=== PATIENT | female | born 2000 | race Caucasian/White ===

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

== ENCOUNTER 2020-12-08 23:09 | Emergency (ER) | payer OTHER ==
[~2020-12-08] VITALS: Ht 172.7 cm; Wt 58.7 kg
[2020-12-08 23:09] VITALS: BP 162/81
== END 2020-12-09 03:02 | disposition left against medical advice (07) ==
LOC: M ED 23:09
DX: Z53.21 Procedure and treatment not carried out due to patient leaving prior to being seen by health care provider (principal)

== ENCOUNTER 2020-12-14 01:52 | Emergency (ER) | payer OTHER ==
[~2020-12-14] VITALS: Ht 172.7 cm; Wt 58.7 kg
[2020-12-14] MEDS ORDERED: NS 1,000 ML IV ONE (07:35)
[2020-12-14] MEDS ORDERED: KETOROLAC 30 MG/ML 1ML VIAL IV ONE (07:35)
[2020-12-14 08:44] LABS: BASO % 0.7 % (0.0-1.0); EOS % 0.3 % (0.0-3.0); HEMATOCRIT 42.7 % (36.0-47.0); LYMPH % 32.6 % (24.0-44.0); MEAN CORPUSCULAR HEMOGLOBIN 31.3 pg (27.0-33.0); MEAN CORPUSCULAR HGB CONC 35.1 g/dl (32.0-36.5); MEAN CORPUSCULAR VOLUME 89.1 fl (80.0-96.0); MONO # 0.5 10^3/uL (0.0-0.8); MONO % 8.6 % (2.0-8.0); NEUTROPHILS # 3.5 10^3/uL (1.5-8.5); NEUTROPHILS % 57.1 % (36.0-66.0); PLATELET COUNT, AUTOMATED 257 10^3/uL (150-450); RED BLOOD COUNT 4.79 10^6/uL (4.00-5.40); WHITE BLOOD COUNT 6.1 10^3/uL (4.0-10.0)
[2020-12-14 08:55] LABS: RSV AMPLIFICATION NEGATIVE (NEGATIVE)
[2020-12-14] MEDS ORDERED: ONDANSETRON 4MG/2ML VIAL IV ONE (09:10)
[2020-12-14] MEDS ORDERED: ONDANSETRON 4MG/2ML VIAL As Ordered ONE (09:11)
[2020-12-14 09:13] LABS: CK-MB VALUE MASS 5.4 NG/ML (<3.6); CPK CREATINE PHOSPHOKINASE 339 U/L (26-192); MB/CK RELATIVE INDEX 1.59 (< OR =4); TROPONIN I < 0.02 NG/ML (< 0.10)
[2020-12-14 09:20] LABS: ERYTHROCYTE SEDIMENTATION RATE 2 mm/hr (0-20)
--- NOTE | 2020-12-14 09:53 | REP ---
INDICATION: SOB, CP. COMPARISON: None. TECHNIQUE: Portable FINDINGS: The technique utilized in obtaining the radiograph has magnified the cardiac silhouette and accentuated the interstitial markings. The superior mediastinal structures are midline. The cardiac silhouette is unremarkable in size, shape, and position. The diaphragmatic surfaces of the lungs are regular, and the costophrenic angles are clear. The pulmonary silvestre are clear. The imaged osseous structures are intact. IMPRESSION: There is no acute cardiopulmonary disease. <Electronically signed by Dinesh Doshi > 12/14/20 [id number]
[2020-12-14] MEDS ORDERED: CLOT1CRE56 TOP (10:46)
[2020-12-14] MEDS ORDERED: DOXY-443 PO (10:46)
[2020-12-14 11:00] VITALS: BP 122/56
[2020-12-15] MEDS ORDERED: LORA1TAB4 (13:34)
[2020-12-15 17:09] LABS: Lyme Disease IgG/IgM Antibodie <0.91 ISR (0.00-0.90); Lyme Disease IgM Ab Quantitati <0.80 index (0.00-0.79)
== END 2020-12-14 11:05 | disposition home or self-care (01) ==
LOC: M ED 01:52
DX: R21 Rash and other nonspecific skin eruption (principal); R00.2 Palpitations; R74.8 Abnormal levels of other serum enzymes; R06.02 Shortness of breath; R11.0 Nausea; F17.200 Nicotine dependence, unspecified, uncomplicated; Z79.899 Other long term (current) drug therapy
CPT/HCPCS: 71045; 80047; 82550; 82553; 84702; 85025; 85379; 85652; 86617; 87631; 96361; 96374; 96375; 99284; J1885; J2405

== ENCOUNTER 2020-12-15 13:10 | Emergency (ER) | payer OTHER, SELFPAY ==
[~2020-12-15] VITALS: Ht 172.7 cm; Wt 57.3 kg
[~2020-12-15 13:10] MED LIST changes: +CLOT1CRE56 TOP; +DOXY-443 PO
[2020-12-15] MEDS ORDERED: LORA1TAB4 (13:34)
--- OUTSIDE RECORDS SUMMARY | 2020-12-15 19:38 | CCD | Continuity of Care Document ---
Author Author Nereida ROSENBERG Organization Unknown Address [address] [place] [id number] Phone [phone] Problems Description No Information Available Social History Type Date Description Comments Sex Unknown Allergies, Adverse Reactions, Alerts Description No Information Available Medications Description No Information Available Immunizations Description No Information Available Vital Signs Description No Information Available Results Description No Information Available Procedures Description No Information Available Medical Devices Description No Information Available Encounters Description No Information Available Assessments Date Code Description Provider 11/06/2020 Z20.828 Contact with and (koo spected) exposure to other viral communicable diseases LILY Browning Plan of Treatment No Information Available Functional Status Description No Information Available Mental Status Description No Information Available Referrals Description No Information Available
--- OUTSIDE RECORDS SUMMARY | 2020-12-15 19:38 | CCD | Continuity of Care Document ---
Author Author Nereida ROSENBERG Organization Unknown Address [address] [place] [id number] Phone [phone] Problems Description No Information Available Social History [...]
--- OUTSIDE RECORDS SUMMARY | 2020-12-15 19:39 | CCD ---
Author Author [facility] Organization [facility] Address Unknown Phone Unavailable Care Team Providers Care Washer Hand Name Role Phone NO, PCP Unavailable Unavailable TURRIN, ANTWAN Unavailable Unavailable TURRIN, ANTWAN Unavailable Unavailable TURRIN, ANTWAN Unavailable Unavailable TURRIN, ANTWAN Unavailable Unavailable Re-disclosure Warning The records that you are about to access may contain information from federally-assisted alcohol or drug abuse programs. If such information is present, then the following federally mandated warning applies: This information has been disclosed to you from records protected by federal confidentiality rules (42 CFR part 2). The federal rules prohibit you from making any further disclosure of this information unless further disclosure is expressly permitted by the written consent of the person to whom it pertains or as otherwise permitted by 42 CFR part 2. A general authorization for the release of medical or other information is NOT sufficient for this purpose. The Federal rules restrict any use of the information to criminally investigate or prosecute any alcohol or drug abuse patient.The records that you are about to access may contain highly sensitive health information, the redisclosure of which is protected by Article 27-F of the [facility] Public Health law. If you continue you may have access to information: Regarding HIV / AIDS; Provided by facilities licensed or operated by the [facility] Office of Mental Health; or Provided by the [facility] Office for People With Developmental Disabilities. If such information is present, then the following [facility] mandated warning applies: This information has been disclosed to you from confidential records which are protected by state law. State law prohibits you from making any further disclosure of this information without the specific written consent of the person to whom it pertains, or as otherwise permitted by law. Any unauthorized further disclosure in violation of state law may result in a fine or prison sentence or both. A general authorization for the release of medical or other information is NOT sufficient authorization for further disc losure. Family History Family Member Name Family Member Gender Family Member Status Date o f Status Description Data Source(s) Unknown Unknown Problem [facility] ([facility]) Unknown Unknown Problem [facility] ([facility]) Unknown Unknown Problem [facility] ([facility]) Unknown Unknown Problem [facility] ([facility]) Encounters Encounter Providers Location Date Indications Data Source(s ) Emergency Attender: ANTWAN Cruzant: PCP NO 12/10/2020 09:45:00 AM EDT - 12/10/2020 12:12:00 PM EDT [facility] Patient discharged. Medications Medication Brand Name Start Date Product Form Dose Route Admi nistrative Instructions Pharmacy Instructions Status Indications Reaction Description Data Source(s) Cephalexin 500 MG Oral Capsule CEPHALEXIN 12/08/2020 12:00:00 AM EDT capsule 21 TAKE ONE CAPSULE BY MOUTH THREE TIMES A DAY FOR 7 DAYS TAKE ONE CAPSULE BY MOUTH THREE TIMES A DAY FOR 7 DAYS SOLD: 12/08/2020 [facility] Insurance Providers Payer name Policy type / Coverage type Policy ID Covered constitution party ID Covered constitution party's relationship to diaz Policy Diaz Plan Information D Managed Care Sudheer P [id number] S [id number] MEDICAID [id number] SP [id number] Medicaid [facility] Part B [id number] Self [id number] [place] Medicaid [id number] Self [id number] SUDHEER [id number] SP [id number] [place] Medig[place] Part B [id number] Self [place] Care [place] Medicaid [id number] Self D Managed Care [place] P [id number] S [id number] Sudheer Care Commercial [id number] Self [place] CARE [place] O [id number] S [id number] SUDHEER [id number] SP [id number] MEDICAID [id number] SP [id number] Problems, Conditions, and Diagnoses Code Display Name Description Problem Type Effective Dates Data Source(s) G06068 Nicotine dependence, cigarettes, uncompl icated Nicotine dependence, cigarettes, uncomplicated Diagnosis 12/10/2020 09:45:00 AM EDT [facility] [id number] Cellulitis of left lower limb Cellulitis of left lower limb Diagnosis 12/10/2020 09:45:[address] [facility] R21 Rash and other nonspecific skin eruption Rash and other nonspecific skin eruption Diagnosis 12/10/2020 09:45:[address] [facility] Surgeries/Procedures No Information Results ID Date Data Source [id number] 12/10/2020 09:45:[address] [facility] [address] [facility] Emergency Department [address] [place] [address] Phone #: ext- [phone] 12/10/2020 09:43 Patient: JON POLK Sex: F : 2000 Age: 20yWEIGHT:57.1 kg (S) HEIGHT:68 inches (S) BMI:19.1ALLERGIES: NoneCHIEF COMPLAINT: skin rash, lesion, tender areaDIAGNOSIS: Cellulitis of skinLAB ORDERSOrder Description Priority Entered Acknowledged InitialedUrinalysis (Clean STAT 11:08 12/10/2020 11:12 Shashi Vicente RN P.A.-C;HCG Urine Qual STAT 11:12/10/2020 11:12 Adolfo Vicente RN P.A.-C;DIAGNOSTIC STUDY ORDERSOrder Description Priority Entered Acknowledged InitialedMEDICATION/IV/DRIP/FLUID ORDERSOrder Description Priority Entered Acknowledged InitialedGENERAL ORDERSOrder Description Priority Entered Acknowledged Initialed[Electronically signed by Kanchan Ortiz RN (12:14 12/10/2020)][Electronically signed by Manjit Carter P.A.-C (20:57 12/10/2020)][Electronically locked by Kanchan Ortiz RN (12:12/10/2020)] Name Value Range Interpretation Code Description Data Kezia rce(s) Supporting Document(s) ID Date Data Source [id number] 12/10/2020 09:45:[address] [facility] [address] [facility] Emergency Department [address] [place] [address] Phone #: [phone]- [phone] 12/10/2020 09:43 Patient: JON POLK Sex: F : 2000 Age: 20yWeight: 57.1 kgHeight/Length: 68 in.BMI: 19.1ALLERGIES: NoneThe patient's Home Medications are listed below:STOP TAKING THE FOLLOWING MEDICATIONS: Keflex Oral, only took 1 dose and did not take anymoreThe source(s) of the original Home Medication information:Not obtained.The following Medications were given to the patient in the Emergency Department:None.The following Medications were prescribed to the patient:Ativan 1 mg tablet Take 1 tablet twice a day for 5 days -- Dispense 10 tablet. Refills: 0. Substitutionpermitted. Note to Pharmacy - USE Rx DISCOUNT CARD: $74.25, BIN:[id number], PCN:NAOMI,Group:[id number], ID:[id number].Pharmacy - [facility] - [id number] ; [place] [address]. FaxNumber: [phone].Bactrim DS 800 mg-160 mg tablet Take 1 tablet twice a day for 10 days -- Dispense 20 tablet. Refills:0. Substitution permitted. Note to Pharmacy - USE Rx DISCOUNT CARD: $44.43, BIN:[id number],PCN:NAOMI, Group:[id number], ID:[id number].Pharmacy - [facility] - [id number] ; [place] [address]. Phone: FaxNumber: . -- Manjit Carter P.A.-C Name Value Range Interpretation Code Description Data [facility] Supporting Document(s) ID Date Data Source [id number] 12/10/2020 09:45:[address] [facility] [address] [facility] Emergency Department [address] [place] [address] Phone #: ext- [phone] 12/10/2020 09:43 Patient: JON POLK Sex: F : 2000 Age: 20yWeight: 57.1 kgHeight/Length: 68 inBMI: 19.1ALLERGIES: NoneDate/Time Medication Administered Medication Ordered Name Value Range Interpretation Code Description Data [facility] Supporting Document(s) ID Date Data Source [id number] 12/10/2020 09:45:[address] [facility] [address] [facility] Emergency Department [address] [place] [address] Phone #: ext- [phone] 12/10/2020 09:43 Patient: JON POLK Sex: F : 2000 Age: 20yCellulitis of the left lower leg.INSTRUCTIONSDo not work today, tomorrow.No dietary restrictions.(Recommend to utilize OTC Motrin and Tylenol to control inflammation and pain management.Recommend to follow the instructions on the bottle and not to exceed.).Warnings: Further evaluation is necessary.SEDATIVE MEDICATION: You were given sedative medication during your visit. Do not drive or operatedangerous machinery.CONTROLLED SUBSTANCE WARNINGS.GENERAL WARNINGS: Return or contact your physician immediately if your condition worsens orchanges unexpectedly, if not improving as expected, or if other problems arise.Your Current Medications: Your current home medications have been reviewed.STOP TAKING THE FOLLOWING MEDICATIONS:Keflex Oral : only took 1 dose and did not take anymore.Prescription monitor program consulted by me due to This report was requested by: Manjit CarterReference #: [id number]. Prescription does not exceed state maximum supply of medicationsPrescription Medications:Ativan 1 mg tablet Take 1 tablet twice a day for 5 days -- Dispense 10 tablet. Refills: 0. Substitutionpermitted. Note to Pharmacy - USE Rx DISCOUNT CARD: $74.25, BIN:[id number], PCN:NAOMI,Group:[id number], ID:[id number].Pharmacy - [facility] - [id number] ; [place] [address]. FaxNumber: [phone].Bactrim DS 800 mg-160 mg tablet Take 1 tablet twice a day for 10 days -- Dispense 20 tablet. Refills:0. Substitution permitted. Note to Pharmacy - USE Rx DISCOUNT CARD: $44.43, BIN:[id number],PCN:NAOMI Group:[id number], ID:[id number].Pharmacy - [facility] - [id number] ; [place] [address]. Phone: FaxNumber: .Follow-up: [address] [facility] Emergency Department [address] [place] [address] Phone #: ext- [phone] 12/10/2020 09:43 Patient: JON POLK Sex: F : 2000 Age: 20yReturn to the emergency department as needed. Follow up with your healthcare provider if not better.Understanding of the discharge instructions verbalized by patient.Follow-up with: [facility], , , [address] [place] [address], [address] Follow up. Reason for referral: evaluation, treatment and To establish care. ADDITIONAL INFORMATIONCellulitisCellulitis is an infection of the deep layers of skin. A break in the skin, such as a cut or scratch, can letbacteria under the skin. If the bacteria get to deep layers of the skin, it can be serious. If not treated,cellulitis can get into the bloodstream and lymph nodes. The infection can then spread throughout thebody. This causes serious illness.Cellulitis causes the affected skin to become red, swollen, warm, and sore. The reddened areas havea visible border. An open sore may leak fluid (pus). You may have a fever, chills, and pain.Cellulitis is treated with antibiotics taken for 7 to 10 days. An open sore may be cleaned and coveredwith cool wet gauze. Symptoms should get better 1 to 2 days after treatment is started. Make sure totake all the antibiotics for the full number of days until they are gone. Keep taking the medicine even ifyour symptoms go away.Home careFollow these tips: Limit the use of the part of your body with cellulitis. If the infection is on your leg, keep your leg raised while sitting. This helps reduce swelling. Take all of the antibiotic medicine exactly as directed until it is gone. Don't miss any doses, especially during the first 7 days. Don't stop taking the medicine when your symptoms get better. Keep the affected area clean and dry. Wash your hands with soap and clean, running water before and after touching your skin. Anyone else who touches your skin should also wash his or her hands. Don't share towels.Follow-up careFollow up with your healthcare provider, or as advised. If your infection doesn't go away on the first [address] [facility] Emergency Department [address] [place] [address] Phone #: ext- [phone] 12/10/2020 09:43 Patient: JON POLK Sex: F : 2000 Age: 20yantibiotic, your healthcare provider will prescribe a different one.When to seek medical adviceCall your healthcare provider right away if any of these occur: Red areas that spread Swelling or pain that gets worse Fluid leaking from the skin (pus) Fever higher of 100.4 F (38.0 C) or higher after 2 days on antibiotics [id number] [employer]. [address] [place] [address], [place] [address]. All rights reserved. This information is not intended as asubstitute for professional medical care. Always follow your healthcare professional's instructions. You have been given the following additional information: Cellulitis Do not work today, tomorrow.(Electronically signed by Manjit Carter P.A.-C 12/10/2020 20:57) Name Value Range Interpretation Code Description Data Kezia rce(s) Supporting Document(s) ID Date Data Source [id number] 12/10/2020 09:45:[address] [facility] 1 Clinical Report - Nurses [facility] Emergency Department [address] [place] [address] Phone #: ext- [phone] 12/10/2020 09:43 Patient: JON POLK Sex: F : 2000 Age: 20yTRIAGEArrived by private vehicle. Historian: patient. Accompanied by family. ( had a rash on leg [facility] keflex 1 hour later she felt that her heart was racing she does haveanxiety then she states that her legs were twitching, [place] [facility] [place] [facility] [place] [facility] started to slow down and now shenoticed she had an enlarged lymph node enlargement, legs feel weak, she started vomit after takingantibiotic and now has loose stools, only took the antibiotic once, she states she stuck a needle in themiddle of her sore now she is concerned that it is in her blood stream she also has flight of ideas).Acuity: LEVEL 3.Chief Complaint: (anxiety, loose st ool).Alert. No acute distress.This started yesterday.Treatment SKEIN YARN DRIER:None.SEPSIS SCREEN: SIRS SCREEN NEGATIVE. SEPSIS SCREEN NEGATIVE. No suspected or confirmedsigns of infection present. --09:58 12/10/20 Addie Jaimes R.N.09:49 12/10/20. BP: 128/98. MAP: 108. HR: 93. RR: 18. O2 saturation: 96%. Temp: 97.6 F. Pain levelnow: 0/10. --09:58 12/10/20 Addie Jaimes R.N.Weight: 57.1 kg stated. Height/Length: 68 inches Per Patient. BMI: 19.1. --09:49 12/10/20 Addie Jaimes R.N.MedicationsKeflex Oral (only took 1 dose and did not take anymore). --09:53 12/10/20 Addie Jaimes R.N.AllergiesNone. --09:53 12/10/20 Addie Jaimes R.N.PROBLEMS:Anxiety Reaction. --09:54 12/10/20 Addie Jaimes R.N.ADDITIONAL SURGERIES:Tonsillectomy.Tooth extraction. --09:54 12/10/20 Addie Jaimes R.N.HistoryPAST MEDICAL HX: Immunizations: up-to-date. Last normal menstrual period- 2 weeks ago. ( she 2 Clinical Report - Nurses [facility] Emergency Department [address] [place] [address] Phone #: ext- [phone] 12/10/2020 09:43 Patient: JON POLK Sex: F : 2000 Age: 20y states she also has painful menstrual). SOCIAL HX: Light tobacco smoker- less than 1/2 a pack per day. Occasional drug use: marijuana. No alcohol use. She was offered HIV testing but declined and hepatitis C testing but declined. She has not traveled outside the [place] Infectious disease exposure: No infectious disease exposure. The patient was not exposed to Coronavirus. (not vaccinated). Patient is not a known carrier of tuberculosis, hepatitis, HIV, MRSA or VRE. Patient is not a known carrier of CRE. SELF HARM ASSESSMENT: Self harm assessment was performed. The patient answered "no" to the question(s) "Have you recently felt down, depressed, or hopeless?" and "Do you have thoughts of harming or killing yourself?". ABUSE ASSESSMENT: Abuse assessment. Abuse denied. No suspicion of abuse. No report of abuse. NUTRITIONAL RISK ASSESSMENT: The nutritional risk assessment revealed no deficiencies. FUNCTIONAL ASSESSMENT: Functional assessment: no impairments noted. LEARNING NEEDS ASSESSMENT: The learning needs assessment revealed no barriers. FALL RISK ASSESSMENT: Fall risk assessment completed. No risk factors identified. SKIN INTEGRITY ASSESSMENT: Skin integrity risk assessment completed. No skin integrity risk identified. --12/10/20 Addie Jaimes R.N. Interventions Identification band on patient. To treatment room. --12/10/20 Addie Jaimes R.N.PHYSICAL ASSESSMENTAmbulatory to room. ( pt has a circular sore to the left lateral portion of the lower leg tamra 5/8" in diameter,also she voices a lump to her left lymph node in the left inguinal area).GENERAL / NEURO / PSYCH: Alert. Oriented X 4. Appears in pain.HEENT: Pupils equal, round and reactive to light. No facial asymmetry noted. Mucous membranes arepink.RESPIRATORY: Respirations not labored. Chest nontender. Breath sounds within normal limits.CVS: Normal sinus rhythm noted. Capillary refill less than 2 seconds. Pulses within normal limits.GI / : Abdomen soft and nontender and normal bowel sounds.SKIN: Skin intact. Skin is warm and dry. Normal skin turgor. --12/10/20 Adolfo Vicente RN.NURSING PROGRESS NOTESPatient gowned. Head of bed elevated. Reassurance given. Call light placed in reach. Bed placed inlowest position. Brakes of bed on. Patient ready for evaluation- ED physician and PA notified. --10: Adolfo Vicente RN 3 Clinical Report - Nurses [facility] Emergency Department [address] [place] [address] Phone #: ext- [phone] 12/10/2020 09:43 Patient: JON POLK Sex: F : 2000 Age: 20y ( pt able to ambulate to the bathroom and back without issues, once in her room she now voices that she is feeling a chest pain, sharp, to the center of her chest, pt put on the monitor and provider is made aware). --11:18 12/10/20 Adolfo Vicente RN ( now pt states she has no chest pain, it just came and went, her legs still feel weak). --11:21 12/10/20 Adolfo Vicente RN 11:18 12/10/20. BP: 131/70. MAP: 90. HR: 69. RR: 16. O2 saturation: 99%. Pain level now: 010. --11:21 12/10/20 Adolfo Vicente RN.DISPOSITION / DISCHARGE 12:10 . BP: 112/66. MAP: 81. HR: 61. RR: 16. O2 saturation: 99%. Temp: 97.9 F. Pain level now: 0. --12:12 12/10/20 Kanchan Ortiz RN 12:12 12/10/20. Condition at departure: stable. No learning barriers present. Discharge instructions provided and reviewed with the patient. Reviewed medication(s) side effects, precautions, dosing and course information. Prescription(s) sent electronically to pharmacy (Bactrim, Ativan). Work note given (off x 2 days). Patient verbalized understanding. The patient was discharged home. She left ambulatory and via private vehicle. Patient driving. --12:13 12/10/20 Kanchan Ortiz RN.Locked/Released at 12/10/2020 12:14 by Kanchan Ortiz RN Name Value Range Interpretation Code Description Data Kezia rce(s) Supporting Document(s) ID Date Data Source [id number] 12/10/2020 09:45:[address] [facility] 1 Clinical Report - Physicians/Mid Levels [facility] Emergency Department [address] [place] [address] Phone #: ext- [phone] 12/10/2020 09:43 Patient: JON POLK Sex: F : 2000 Age: 20y Time Seen: 11:00 12/10/2020; initial patient contact, initial documentation. Arrived- By private vehicle. Historian- patient. Disposition decision: 12:07 12/10/2020.HISTORY OF PRESENT ILLNESS Chief Complaint: SKIN RASH, LESION and TENDER AREA. This started about 5 days ago and is still present. It is described as itchy and painful. It has been located on the left lower extremity. No cause has been identified. She has recently taken medication. (Pt sts that she developed a lesion/tender red area of the lateral LLE. Sts he [place] [facility] [place] and was rx'ed Keflex. sts she took a dose and felt odd/heart racing. sts she does not take meds normally, but does have a hx of anxiety. Sts that she then went to [facility] about an hour later and waited and eventually LWOBS. Sts that she ended up taking a needle and sticking it in there and concerned it may have spread.). Recent medical care: The patient was seen recently at another facility in a clinic.REVIEW OF SYSTEMS Last normal menstrual period was 2 weeks ago. No fever, chills, sore throat, cough or difficulty breathing. No hoarseness, lump in throat, enlarged lymph nodes, headache or chest pain. No abdominal pain, nausea, diarrhea, difficulty with urination or genital lesions. No joint pain or vomiting. All other systems reviewed and are negative.PAST HISTORY See nurses notes. Problems: Anxiety Reaction. Additional Surgeries: Tonsillectomy. Tooth extraction. Medications: Keflex Oral (only took 1 dose and did not take anymore). Allergies: None.SOCIAL HISTORY Light tobacco smoker- less than 1/2 a pack per day. Drug use: marijuana. No alcohol use.ADDITIONAL NOTES 2 Clinical Report - Physicians/Mid Levels [facility] Emergency Department [address] [place] [address] Phone #: ext- [phone] 12/10/2020 09:43 Patient: JON POLK Sex: F : 2000 Age: 20y The nursing notes have been reviewed.PHYSICAL EXAM Vital Signs: 12/10/2020 09:49 BP: 128/98. MAP: 108. HR: 93. RR: 18. O2 saturation: 96%. Temp: 97.6 F. Pain level now: 0/10. Have been reviewed. Oxygen saturation normal. Appearance: Alert. Oriented X3. No acute distress. ENT: Voice normal. CVS: Normal heart rate and rhythm. No JVD present. Pulses normal. Capillary refill normal. Strong peripheral pulses. Heart sounds normal. Pulses: right radial 2+; left radial 2+; right dorsalis pedis 2+; left dorsalis pedis 2+; right posterior tibial 2+; left posterior tibial 2+. Respiratory: Chest normal on inspection. No respiratory distress. Unlabored respirations. Lungs clear. Good chest movement. Breath sounds normal and equal. Skin: Skin warm and dry. Tender indurated area. Cellulitis. There is warmth, tenderness and inflammation. Extremities: Normal external inspection. No upper extremity edema. Extremities nontender. No calf tenderness. Neuro: Awake. Alert. Mood/affect normal. Speech normal. No motor deficit. No sensory deficit. Psych: Cognition normal. Thought process and content normal. Insight and judgement normal.LABS, X-RAYS, AND EKG Laboratory Tests: Urinalysis: (JHONY: 12/10/2020 11:13) ( [facility] [place]10[place] 11:26) Final results Test Result Flag Units (Reference) URINALYSIS URINALYSIS SOURCE R COLOR yellow (NORMAL: Yello CLARITY cloudy (NORMAL: Clear SPEC GRAVITY 1.015 (1.001 - 1.030 pH 7 (5 - 9) GLUCOSE NORM (NORMAL: Negat BILIRUBIN NEG (NORMAL: Negat KETONE 150 A (NORMAL: Negat PROTEIN NEG (NORMAL: Negat NITRITE NEG (NORMAL: Negat BLOOD NEG (NORMAL: Negat LEUK EST NEG (NORMAL: Negat UROBILINOGEN 4 (less than 1.0 MICROSCOPIC Not Indicate Beta-HCG, Qual Urine: (JHONY: 12/10/2020 11:13) ( [facility] 12/10/2020 11:25) Final results Test Result Flag Units (Reference) HCG URINE QUAL NEGATIVE (NORMAL: NEGAT HCG URINE QL REENTER NEGATIVE (NORMAL: NEGAT { KIT LOT # [id number] ){ KIT EXP DATE 03.29.22 ){ PROCEDURAL CONTROL VALID ) 3 Clinical Report - Physicians/Mid Levels [facility] Emergency Department [address] [place] [address] Phone #: ext- [phone] 12/10/2020 09:43 Patient: JON POLK Sex: F : 2000 Age: 20y.PROGRESS AND PROCEDURES Course of Care: Enter room and pt lying peacefully in bed in NAD. Patient stable. Denies any new issues, concerns, or complaints. VSS, NAD, AOx3, interacting well and appropriately, no use of accessory muscle, able to speak full sentences, stable, non-toxic looking. Pt sts she does have anxiety, but feels she may have a infection now. Pt also indicates multiple other vagues complaints that have been transient and currnelty not issues (leg tingeling, hand tingeling). ? 2/2 anxiety/hyperventation. PE demos NV intact b/l UE and LE. noted lesino of hte LLE, noted L inguinal LND ([employer] present: Veronica Stone RN). Lesion c/w ? cellulititis. Will change abx to cover MRSA as pt sts she did stick a needle into it. Will also cover anxiety. PT is in full agreement with tx plan. Will order labs for sailaja miller. PEnding restuls. Reviewed results. Enter room and patient lying peacefully in bed in NAD. Patient stable. Denies any new issues, concerns, or complaints. Sts that she feels much better Discussed results with pt. Discussed tx plan with pt. Discussed and counseled on stable condition. Discussed importance of a f/u with PCP. Discussed return to ER criteria. Answered their questions. Indicates and verbalizes that they understand, agree, and will comply with above. Denies any new questions or concerns. Patient has capacity to understand. Discharge decision based on the following: patient's condition is stable; patient's exam is stable; social support is adequate; transportation is available; follow-up is available. Discussed of OTC Motrin and Tylenol to control inflammation and pain management. Informed to follow directions on bottle that are appropriate for age and/or weight. Disposition: Discharged home in good and improved condition. Condition: good and stable.CLINICAL IMPRESSION Cellulitis of the left lower leg.INSTRUCTIONS Do not work today, tomorrow. 4 Clinical Report - Physicians/Mid Levels [facility] Emergency Department [address] [place] [address] Phone #: ext- [phone] 12/10/2020 09:43 Patient: JON POLK Sex: F : 2000 Age: 20yNo dietary restrictions.(Recommend to utilize OTC Motrin and Tylenol to control inflammation and pain management.Recommend to follow the instructions on the bottle and not to exceed.).Warnings: Further evaluation is necessary.SEDATIVE MEDICATION: You were given sedative medication during your visit. Do not drive or operatedangerous machinery.CONTROLLED SUBSTANCE WARNINGS.GENERAL WARNINGS: Return or contact your physician immediately if your condition worsens orchanges unexpectedly, if not improving as expected, or if other problems arise.Your Current Medications: Your current home medications have been reviewed.STOP TAKING THE FOLLOWING MEDICATIONS:Keflex Oral : only took 1 dose and did not take anymore.Prescription monitor program consulted by me due to This report was requested by: Manjit Storeynce #: [id number]. Prescription does not exceed state maximum supply of medicationsPrescription Medications:Ativan 1 mg tablet Take 1 tablet twice a day for 5 days -- Dispense 10 tablet. Refills: 0. Substitutionpermitted. Note to Pharmacy - USE Rx DISCOUNT CARD: $74.25, BIN:[id number], PCN:NAOMI,Group:[id number], ID:[id number].Pharmacy [facility] #[id number] - [id number] ; [place] [address]. FaxNumber: .Bactrim DS 800 mg-160 mg tablet Take 1 tablet twice a day for 10 days -- Dispense 20 tablet. Refills:0. Substitution permitted. Note to Pharmacy - USE Rx DISCOUNT CARD: $44.43, BIN:[id number],PCN:NAOMI, Group:[id number], ID:[id number].Pharmacy - [facility] #[id number] - [id number] ; [place] [address]. FaxNumber: .Follow-up:Return to the emergency department as needed. Follow up with your healthcare provider if not better.Understanding of the discharge instructions verbalized by patient.Follow- up with: [facility], , , [address] [place] [address], [id number] up. Reason for referral: evaluation, treatment and To establish care. 5 Clinical Report - Physicians/Mid Levels [facility] Emergency Department [address] [place] [address] Phone #: ext- [phone] 12/10/2020 09:43 Patient: JON POLK Sex: F : 2000 Age: 20y(Electronically signed by Manjit Carter P.A.-C 12/10/2020 20:57) Name Value Range Interpretation Code Description Data Kezia rce(s) Supporting Document(s) ID Date Data Source [id number] 12/10/2020 11:25:[address] [facility] Name Value Range Interpretation Code Description Data Kezia rce(s) Supporting Document(s) [facility] yellow NORMAL: Yellow [facility] CLARITY cloudy NORMAL: Clear [facility] Specific gravity of Urine by Test strip 1.015 1.001 - 1.030 [facility] pH 7 5 - 9 [facility] Glucose [Mass/volume] in Urine by Test strip NORM NORMAL: Negat [facility] Bilirubin.total [Presence] in Urine by Test strip NEG NORMAL: Negative [facility] Ketones [Presence] in Urine by Test strip 150 NORMAL: Negative A [facility] Protein [Mass/volume] in Urine by Test strip NEG NORMAL: Negat [facility] Nitrite [Presence] in Urine by Test strip NEG NORMAL: Negative [facility] BLOOD NEG NORMAL: Negative [facility] LEUK EST NEG NORMAL: Negative [facility] Urobilinogen [Mass/volume] in Urine by Test strip 4 less galilea n 1.0 mg/dL [facility] MICROSCOPIC Not Indicate [facility] ID Date Data Source [id number] 12/10/2020 11:25:[address] [facility] Name Value Range Interpretation Code Description Data Kezia rce(s) Supporting Document(s) HCG URINE QUAL NEGATIVE NORMAL: NEGATIVE [facility] HCG URINE QL REENTER NEGATIVE NORMAL: NEGATIVE [facility] { KIT LOT # [id number] ){ KIT EXP DATE 03.29.22 ){ PROCEDURAL CONTROL VALID ) ID Date Data Source [id number] 11/06/2020 12:00:00 AM [facility] Name Value Range Interpretation Code Description Data Kezia rce(s) Supporting Document(s) SARS-CoV2 Rapid Antigen Negative [facility] This lab was reported by [facility]. ID Date Data Source [id number] 10/13/2020 01:45:00 PM EDT [facility] Name Value Range Interpretation Code Description Data Kezia rce(s) Supporting Document(s) SARS coronavirus 2 RNA [Presence] in Res piratory specimen by [facility] with probe detection anterior nasal swabs [facility] This lab was ordered by [facility] and re ported by [facility]. ID Date Data Source [id number] 10/13/2020 09:45:00 AM EDT [facility] Name Value Range Interpretation Code Description Data Kezia rce(s) Supporting Document(s) SARS-CoV-2 NEGATIVE [facility] This lab was ordered by [facility] and reported by [employer]. Procedure Social History No Information
[2020-12-15 20:14] VITALS: BP 114/70
--- NOTE | 2020-12-16 13:32 | ECGEPIP ---
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
== END 2020-12-15 20:44 | disposition home or self-care (01) ==
LOC: M ED 13:10
DX: R07.9 Chest pain, unspecified (principal); F41.8 Other specified anxiety disorders; Z79.899 Other long term (current) drug therapy; Z87.891 Personal history of nicotine dependence

== ENCOUNTER → 2021-01-13 | Outpatient (REF) | payer OTHER ==
[~2021-01-13] MED LIST changes: +LORA1TAB4
== END ==
LOC: M LAB REF 12:27
PROVIDERS: ATTEND Physician Assistant
DX: R05.9 Cough, unspecified (principal); R68.83 Chills (without fever)

== ENCOUNTER 2021-01-19 00:28 | Emergency (ER) | payer MEDICAID, OTHER ==
[~2021-01-19] VITALS: Ht 172.7 cm; Wt 55.9 kg
[2021-01-19 01:46] LABS: BASO # 0.1 10^3/uL (0.0-0.2); BASO % 0.9 % (0.0-1.0); EOS # 0.2 10^3/uL (0.0-0.5); EOS % 2.1 % (0.0-3.0); HEMATOCRIT 38.3 % (36.0-47.0); HEMOGLOBIN 13.3 g/dl (12.0-15.5); LYMPH # 2.7 10^3/uL (1.5-5.0); LYMPH % 34.6 % (24.0-44.0); MEAN CORPUSCULAR HEMOGLOBIN 30.5 pg (27.0-33.0); MEAN CORPUSCULAR HGB CONC 34.7 g/dl (32.0-36.5); MEAN CORPUSCULAR VOLUME 87.8 fl (80.0-96.0); MONO # 0.6 10^3/uL (0.0-0.8); MONO % 7.2 % (2.0-8.0); NEUTROPHILS # 4.1 10^3/uL (1.5-8.5); NEUTROPHILS % 52.3 % (36.0-66.0); PLATELET COUNT, AUTOMATED 256 10^3/uL (150-450); RED BLOOD COUNT 4.36 10^6/uL (4.00-5.40); WHITE BLOOD COUNT 7.8 10^3/uL (4.0-10.0)
[2021-01-19 01:52] LABS: APPEARANCE, URINE CLEAR (CLEAR); BACTERIA, URINE AUTO 1+ (NEGATIVE); BILIRUBIN, URINE AUTO NEGATIVE (NEGATIVE); BLOOD, URINE BLOOD NEGATIVE (NEGATIVE); COLOR, URINE YELLOW (YELLOW); GLUCOSE, URINE (UA) AUTO NEGATIVE (NEGATIVE); KETONE, URINE AUTO NEGATIVE (NEGATIVE); LEUKOCYTE ESTERASE, URINE AUTO NEGATIVE (NEGATIVE); NITRITE, URINE AUTO NEGATIVE (NEGATIVE); PROTEIN, URINE AUTO NEGATIVE (NEGATIVE); RBC, URINE AUTO 0 /HPF (0-3); SPECIFIC GRAVITY URINE AUTO 1.011 (1.002-1.035); SQUAMOUS EPITHELIAL CELL UR AU 3 /HPF (0-6); UROBILINOGEN, URINE AUTO 0.2 mg/dL (0.0-2.0); WBC, URINE AUTO 0 /HPF (0-3)
[2021-01-19 02:06] LABS: BLOOD UREA NITROGEN 13 MG/DL (7-18); CALCIUM LEVEL 9.2 MG/DL (8.5-10.1); CARBON DIOXIDE LEVEL 31 MEQ/L (21-32); CHLORIDE LEVEL 104 MEQ/L (98-107); CREATININE FOR GFR 0.91 MG/DL (0.55-1.30); GLOMERULAR FILTRATION RATE > 60.0 (>60); GLUCOSE, FASTING 104 MG/DL (70-100); MAGNESIUM LEVEL 2.2 MG/DL (1.8-2.4); POTASSIUM SERUM 3.7 MEQ/L (3.5-5.1); SODIUM LEVEL 140 MEQ/L (136-145)
[2021-01-19 02:09] LABS: CK-MB VALUE MASS < 1.0 NG/ML (<3.6); CPK CREATINE PHOSPHOKINASE 90 U/L (26-192); MB/CK RELATIVE INDEX 1.11 (< OR =4); TROPONIN I < 0.02 NG/ML (< 0.10)
[2021-01-19 02:17] LABS: AMPHETAMINES LEVEL URINE NEGATIVE (NEGATIVE); BARBITURATES URINE NEGATIVE (NEGATIVE); BENZODIAZEPINES URINE NEGATIVE (NEGATIVE); CANNABINOIDS URINE POSITIVE (NEGATIVE); COCAINE METABOLITE URINE NEGATIVE (NEGATIVE); METHADONE URINE NEGATIVE (NEGATIVE); OPIATES URINE NEGATIVE (NEGATIVE); PHENCYCLIDINE URINE NEGATIVE (NEGATIVE)
[2021-01-19 03:27] VITALS: BP 123/70
== END 2021-01-19 05:19 | disposition home or self-care (01) ==
LOC: M ED 00:28
DX: R00.2 Palpitations (principal); R07.9 Chest pain, unspecified; F17.210 Nicotine dependence, cigarettes, uncomplicated; Z86.16 Personal history of COVID-19

== ENCOUNTER → 2021-01-23 | Outpatient (CLI) | payer MEDICAID, OTHER | LOC: M EKG 12:52 | PROVIDERS: ATTEND Physician Assistant Medical | DX: R00.2 Palpitations (principal) ==

== ENCOUNTER 2021-01-25 13:20 | Emergency (ER) | payer MEDICAID, OTHER ==
[~2021-01-25] VITALS: Ht 172.7 cm; Wt 56.2 kg
[2021-01-25 13:20] VITALS: BP 119/73
== END 2021-01-25 23:35 | disposition left against medical advice (07) ==
LOC: M ED 13:20
DX: Z53.21 Procedure and treatment not carried out due to patient leaving prior to being seen by health care provider (principal)

== ENCOUNTER → 2021-02-01 | Outpatient (REF) | payer OTHER ==
[2021-02-01 19:01] LABS: HEP C VIRUS AB INDEX SOURCE PT 0.1 INDEX (0.0-0.8); HIV 1&2 SCREEN CENTAUR NEGATIVE (NEGATIVE)
== END ==
LOC: M SFHCADAM 14:15
PROVIDERS: ATTEND Physician Assistant Medical
DX: Z11.59 Encounter for screening for other viral diseases (principal); Z11.4 Encounter for screening for human immunodeficiency virus [HIV]

== ENCOUNTER → 2021-02-17 | Outpatient (REF) | payer OTHER ==
[2021-02-17 19:23] LABS: GC DNA AMPLIFICATION NEGATIVE (NEGATIVE)
== END ==
LOC: M LAB REF 16:35
PROVIDERS: ATTEND Physician Assistant
DX: R30.0 Dysuria (principal)

== ENCOUNTER → 2021-02-25 | Outpatient (REF) | payer OTHER ==
[2021-02-25 19:00] LABS: URINE PREG TEST NEGATIVE (NEGATIVE)
[2021-02-25 20:51] LABS: GC DNA AMPLIFICATION NEGATIVE (NEGATIVE)
== END ==
LOC: M SFHCADAM 18:24
PROVIDERS: ATTEND Family Medicine
DX: R10.2 Pelvic and perineal pain (principal)

== ENCOUNTER → 2022-06-01 | Outpatient (REF) | payer OTHER ==
[~2022-06-01] MED LIST changes: +ETON68IM SC; -NEXP1IMP SC
== END ==
LOC: M SFHCADAM 13:14
PROVIDERS: ATTEND Physician Assistant Medical
DX: J02.9 Acute pharyngitis, unspecified (principal)

== ENCOUNTER → 2022-07-11 | Outpatient (REF) | payer OTHER ==
[~2022-07-11] MED LIST changes: +LORA1TAB23; -LORA1TAB4
[2022-07-11 17:49] LABS: THYROID STIMULATING HORMONE 1.085 uIU/ML (0.55-4.78)
[2022-07-11 17:50] LABS: FREE T4 1.04 NG/DL (0.89-1.76)
[2022-07-11 18:33] LABS: GC DNA AMPLIFICATION NEGATIVE (NEGATIVE)
== END ==
LOC: M SFHCADAM 15:06
PROVIDERS: ATTEND Physician Assistant Medical
DX: E66.01 Morbid (severe) obesity due to excess calories (principal)

== ENCOUNTER → 2022-07-19 | Outpatient (REF) | payer OTHER | LOC: M SFHCADAM 12:55 | PROVIDERS: ATTEND Physician Assistant Medical | DX: N89.8 Other specified noninflammatory disorders of vagina (principal) ==

== ENCOUNTER → 2023-03-25 | Outpatient (REF) | payer OTHER | LOC: M LAB REF 17:43 | PROVIDERS: ATTEND Physician Assistant Medical | DX: B34.9 Viral infection, unspecified (principal) ==

== ENCOUNTER 2023-07-12 01:58 | Emergency (ER) | payer OTHER ==
[~2023-07-12] VITALS: Ht 165.1 cm; Wt 95.5 kg
[~2023-07-12 01:58] MED LIST changes: +DOXY-323 PO; -DOXY-443 PO
[2023-07-12] MEDS: KETOROLAC 30 MG/ML 1ML VIAL IV ONE (04:45)
[2023-07-12] MEDS: NS 1,000 ML IV ONE (04:45)
[2023-07-12 04:48] LABS: BASO # 0.1 10^3/uL (0.0-0.2); BASO % 0.9 % (0.0-1.0); EOS % 0.3 % (0.0-3.0); HEMATOCRIT 45.6 % (36.0-47.0); HEMOGLOBIN 15.6 g/dl (12.0-15.5); LYMPH % 29.9 % (24.0-44.0); MEAN CORPUSCULAR HEMOGLOBIN 29.4 pg (27.0-33.0); MEAN CORPUSCULAR HGB CONC 34.2 g/dl (32.0-36.5); MEAN CORPUSCULAR VOLUME 85.9 fl (80.0-96.0); MONO # 0.3 10^3/uL (0.0-0.8); NEUTROPHILS # 4.1 10^3/uL (1.5-8.5); NEUTROPHILS % 61.5 % (36.0-66.0); PLATELET COUNT, AUTOMATED 277 10^3/uL (150-450); RED BLOOD COUNT 5.31 10^6/uL (4.00-5.40); WHITE BLOOD COUNT 6.6 10^3/uL (4.0-10.0)
[2023-07-12 05:28] LABS: HCG, SERUM QUALITATIVE NEGATIVE (NEGATIVE)
[2023-07-12 05:33] LABS: ETHYL ALCOHOL (ETHANOL) 0.143 % (0.000-0.010)
[2023-07-12 05:35] LABS: BLOOD UREA NITROGEN 10 MG/DL (9-23); CALCIUM LEVEL 9.8 MG/DL (8.5-10.1); CARBON DIOXIDE LEVEL 28 MMOL/L (20-31); CHLORIDE LEVEL 103 MMOL/L (98-107); CREATININE FOR GFR 0.83 MG/DL (0.55-1.30); GLOMERULAR FILTRATION RATE > 60.0 (>60); GLUCOSE, FASTING 107 MG/DL (60-100); POTASSIUM SERUM 4.4 MMOL/L (3.5-5.1); SODIUM LEVEL 141 MMOL/L (136-145)
[2023-07-12] MEDS: LIDOCAINE 2% MDV 20ML VIAL SC ONE (05:43)
[2023-07-12] MEDS: BOOSTRIX VACCINE (TETANUS/DIPHTH/ACEL. PERTUSSIS) 0.5ML SYR IM.IMMUN ONE (07:05)
[2023-07-12] MEDS ORDERED: ceFAZolin SOD 1 GM in D5W MINI-BAG PLUS 50 ML IV ONE (07:30)
[2023-07-12] MEDS ORDERED: IBUP-1022 PO (08:04)
[2023-07-12] MEDS ORDERED: CLEO150C PO (08:04)
[2023-07-12] MEDS: CLINDAMYCIN 900 MG in IV 1 EA IV ONE (08:10)
[2023-07-12 09:15] VITALS: BP 120/68; TEMP 96.8; O2SAT 97
== END 2023-07-12 09:17 | disposition home or self-care (01) ==
LOC: M ED 01:58
DX: S51.011A Laceration without foreign body of right elbow, initial encounter (principal); S52.02 Fracture of olecranon process without intraarticular extension of ulna; W01.0XXA Fall on same level from slipping, tripping and stumbling without subsequent striking against object, initial encounter; F10.10 Alcohol abuse, uncomplicated; Z88.1 Allergy status to other antibiotic agents; Y92.009 Unspecified place in unspecified non-institutional (private) residence as the place of occurrence of the external cause; Y93.K1 Activity, walking an animal; Y99.9 Unspecified external cause status; Z79.1 Long term (current) use of non-steroidal anti-inflammatories (NSAID); Z79.899 Other long term (current) drug therapy
CPT/HCPCS: 73070; 73200; 80048; 82077; 83735; 84703; 85025; 90471; 90715; 96361; 96365; 96375; 99284; J0737; J1885

== ENCOUNTER → 2023-08-01 | Outpatient (CLI) | payer OTHER ==
[~2023-08-01] MED LIST changes: +CLEO150C PO; +IBUP-1022 PO
== END ==
LOC: M SOG 08:02
PROVIDERS: ATTEND Physician Assistant
DX: S52.024D Nondisplaced fracture of olecranon process without intraarticular extension of right ulna, subsequent encounter for closed fracture with routine healing (principal)

== ENCOUNTER 2023-09-08 11:13 | Emergency (ER) | payer OTHER ==
[~2023-09-08] VITALS: Ht 165.1 cm; Wt 93.1 kg
[2023-09-08 12:33] LABS: BASO % 0.6 % (0.0-1.0); EOS # 0.2 10^3/uL (0.0-0.5); EOS % 2.2 % (0.0-3.0); HEMATOCRIT 42.4 % (36.0-47.0); HEMOGLOBIN 14.6 g/dl (12.0-15.5); LYMPH % 29.1 % (24.0-44.0); MEAN CORPUSCULAR HEMOGLOBIN 30.1 pg (27.0-33.0); MEAN CORPUSCULAR HGB CONC 34.4 g/dl (32.0-36.5); MEAN CORPUSCULAR VOLUME 87.4 fl (80.0-96.0); MONO # 0.5 10^3/uL (0.0-0.8); MONO % 7.5 % (2.0-8.0); NEUTROPHILS # 4.1 10^3/uL (1.5-8.5); NEUTROPHILS % 59.6 % (36.0-66.0); PLATELET COUNT, AUTOMATED 233 10^3/uL (150-450); RED BLOOD COUNT 4.85 10^6/uL (4.00-5.40); WHITE BLOOD COUNT 6.9 10^3/uL (4.0-10.0)
[2023-09-08 13:00] LABS: LIPASE 26 U/L (12-53)
[2023-09-08 13:02] LABS: ALBUMIN 4.2 G/DL (3.2-5.2); ALKALINE PHOSPHATASE 104 U/L (46-116); ALT/SGPT 41 U/L (7.0-40); AST/SGOT 22 U/L (<34); BILIRUBIN,DIRECT 0.2 MG/DL (<0.4); BILIRUBIN,TOTAL 0.9 MG/DL (0.3-1.2)
[2023-09-08 13:06] LABS: HCG, SERUM QUALITATIVE NEGATIVE (NEGATIVE)
[2023-09-08 15:04] VITALS: BP 137/84; TEMP 97.4; O2SAT 99
== END 2023-09-08 15:06 | disposition home or self-care (01) ==
LOC: M ED 11:13
DX: R19.7 Diarrhea, unspecified (principal); F10.10 Alcohol abuse, uncomplicated; F12.10 Cannabis abuse, uncomplicated; F41.9 Anxiety disorder, unspecified; Z88.1 Allergy status to other antibiotic agents

== ENCOUNTER → 2023-09-09 | Outpatient (REF) | payer OTHER | LOC: M LAB REF 14:48 | PROVIDERS: ATTEND Emergency Medicine | DX: R19.7 Diarrhea, unspecified (principal) ==

== ENCOUNTER 2023-09-23 02:11 | Emergency (ER) | payer OTHER ==
[~2023-09-23] VITALS: Ht 152.4 cm; Wt 94.1 kg
[2023-09-23 03:52] LABS: BASO # 0.1 10^3/uL (0.0-0.2); BASO % 0.7 % (0.0-1.0); EOS # 0.2 10^3/uL (0.0-0.5); HEMATOCRIT 41.2 % (36.0-47.0); LYMPH % 34.8 % (24.0-44.0); MEAN CORPUSCULAR HEMOGLOBIN 29.7 pg (27.0-33.0); MEAN CORPUSCULAR VOLUME 87.3 fl (80.0-96.0); MONO # 0.5 10^3/uL (0.0-0.8); MONO % 5.7 % (2.0-8.0); NEUTROPHILS # 4.8 10^3/uL (1.5-8.5); NEUTROPHILS % 55.3 % (36.0-66.0); PLATELET COUNT, AUTOMATED 223 10^3/uL (150-450); RED BLOOD COUNT 4.72 10^6/uL (4.00-5.40); WHITE BLOOD COUNT 8.6 10^3/uL (4.0-10.0)
[2023-09-23 04:16] LABS: ALBUMIN 4.1 G/DL (3.2-5.2); ALKALINE PHOSPHATASE 112 U/L (46-116); ALT/SGPT 48 U/L (7.0-40); AST/SGOT 27 U/L (<34); BILIRUBIN,TOTAL 0.8 MG/DL (0.3-1.2); BLOOD UREA NITROGEN 13 MG/DL (9-23); CALCIUM LEVEL 9.3 MG/DL (8.5-10.1); CARBON DIOXIDE LEVEL 28 MMOL/L (20-31); CHLORIDE LEVEL 104 MMOL/L (98-107); CREATININE FOR GFR 0.86 MG/DL (0.55-1.30); GLOMERULAR FILTRATION RATE > 60.0 (>60); GLUCOSE, FASTING 101 MG/DL (60-100); POTASSIUM SERUM 3.4 MMOL/L (3.5-5.1); SODIUM LEVEL 139 MMOL/L (136-145)
[2023-09-23 08:47] LABS: LIPASE 57 U/L (12-53)
[2023-09-23 08:48] LABS: CK-MB VALUE MASS 1.9 NG/ML (<3.6)
[2023-09-23 08:49] LABS: CPK CREATINE PHOSPHOKINASE 242 U/L (34-145); MB/CK RELATIVE INDEX 0.78 (< OR =4)
[2023-09-23 09:06] LABS: HCG, SERUM QUALITATIVE NEGATIVE (NEGATIVE)
[2023-09-23 09:33] LABS: INR 0.92; PARTIAL THROMBOPLASTIN TIME 29.1 SECONDS (24.8-34.2); PROTHROMBIN TIME 12.1 SECONDS (12.5-14.5)
[2023-09-23] MEDS ORDERED: ISOVUE-370 76% 100ML VIAL As Ordered ONE (10:14)
[2023-09-23] MEDS: METOCLOPRAMIDE INJ 10MG/2ML VIAL IV ONE (10:58)
[2023-09-23] MEDS: ACETAMINOPHEN 500 MG TAB PO ONE (10:59)
[2023-09-23] MEDS: NS 1,000 ML IV ONE (10:59)
[2023-09-23 11:44] VITALS: BP 111/66; TEMP 97.5; O2SAT 96
== END 2023-09-23 11:47 | disposition home or self-care (01) ==
LOC: M ED 02:11
DX: R10.9 Unspecified abdominal pain (principal); R11.2 Nausea with vomiting, unspecified; I45.19 Other right bundle-branch block; F17.290 Nicotine dependence, other tobacco product, uncomplicated; F10.10 Alcohol abuse, uncomplicated; Z88.1 Allergy status to other antibiotic agents
CPT/HCPCS: 71046; 74177; 76705; 80053; 81001; 82550; 82553; 83605; 83690; 84484; 84703; 85025; 85610; 85730; 87040; 93005; 96361; 96374; 99284; J2765; Q9967

== ENCOUNTER 2023-11-09 12:08 | Day surgery (SDC) | payer OTHER ==
[~2023-11-09] VITALS: Ht 165.1 cm; Wt 91.2 kg
[~2023-11-09 12:08] MED LIST changes: +FECAL MICROBIOTA TRANSPLANT PREPARATION 35ML BAG XX ONE
[2023-11-09] MEDS: NS 1,000 ML IV ONE (12:34)
[2023-11-09] MEDS ORDERED: propofoL 200 MG/20 ML VIAL As Ordered ONE (13:46)
[2023-11-09 14:35] VITALS: TEMP 97.1
[2023-11-09 15:05] VITALS: BP 120/70; O2SAT 99
== END 2023-11-09 15:05 | disposition home or self-care (01) ==
LOC: M OPP 12:08
PROVIDERS: ATTEND Internal Medicine Gastroenterology
DX: Z04.71 Encounter for examination and observation following alleged adult physical abuse (principal); F17.290 Nicotine dependence, other tobacco product, uncomplicated; Z88.0 Allergy status to penicillin; Z88.1 Allergy status to other antibiotic agents

== ENCOUNTER → 2024-04-18 | Outpatient (REF) | payer OTHER ==
[~2024-04-18] MED LIST changes: -DOXY-323 PO; +DOXY-441 PO; -FECAL MICROBIOTA TRANSPLANT PREPARATION 35ML BAG XX ONE
[2024-04-18 14:06] LABS: BASO # 0.1 10^3/uL (0.0-0.2); BASO % 1.2 % (0.0-1.0); EOS # 0.2 10^3/uL (0.0-0.5); EOS % 3.1 % (0.0-3.0); HEMATOCRIT 41.5 % (36.0-47.0); HEMOGLOBIN 14.3 g/dl (12.0-15.5); LYMPH # 2.1 10^3/uL (1.5-5.0); LYMPH % 34.9 % (24.0-44.0); MEAN CORPUSCULAR HEMOGLOBIN 31.1 pg (27.0-33.0); MEAN CORPUSCULAR HGB CONC 34.5 g/dl (32.0-36.5); MEAN CORPUSCULAR VOLUME 90.2 fl (80.0-96.0); MONO # 0.5 10^3/uL (0.0-0.8); MONO % 8.7 % (2.0-8.0); NEUTROPHILS % 49.8 % (36.0-66.0); PLATELET COUNT, AUTOMATED 263 10^3/uL (150-450); WHITE BLOOD COUNT 6.1 10^3/uL (4.0-10.0)
[2024-04-18 14:12] LABS: ERYTHROCYTE SEDIMENTATION RATE 7 mm/hr (0-20)
[2024-04-18 14:15] LABS: HEMOGLOBIN A1c 5.1 % (4.0-6.0)
[2024-04-18 14:35] LABS: C REACTIVE PROTEIN QUANTITATIV 0.58 MG/DL (<1.0)
[2024-04-18 14:36] LABS: ALBUMIN 3.9 G/DL (3.2-5.2); ALKALINE PHOSPHATASE 89 U/L (35-104); ALT/SGPT 41 U/L (7.0-40); AST/SGOT 27 U/L (<34); BILIRUBIN,TOTAL 0.4 MG/DL (0.3-1.2); BLOOD UREA NITROGEN 10 MG/DL (9-23); CALCIUM LEVEL 9.4 MG/DL (8.5-10.1); CARBON DIOXIDE LEVEL 30 MMOL/L (20-31); CHLORIDE LEVEL 103 MMOL/L (98-107); GLOMERULAR FILTRATION RATE > 60.0 (>60); GLUCOSE, FASTING 78 MG/DL (60-100); POTASSIUM SERUM 4.2 MMOL/L (3.5-5.1); SODIUM LEVEL 143 MMOL/L (136-145); TOTAL PROTEIN 7.3 G/DL (5.7-8.2)
[2024-04-18 14:40] LABS: FREE T4 1.41 NG/DL (0.89-1.76); RHEUMATOID FACTOR QUANT 5.7 IU/ML (<14)
[2024-04-18 14:41] LABS: THYROID STIMULATING HORMONE 1.889 uIU/ML (0.55-4.78)
[2024-04-19 15:08] LABS: ANA SCREEN, IFA NEGATIVE (NEGATIVE)
[2024-04-19 23:23] LABS: CYCLIC CITRULLINATED PEPTIDE < 16 UNITS (<20)
== END ==
LOC: M SFHCADAM 10:23
PROVIDERS: ATTEND Physician Assistant
DX: J06.9 Acute upper respiratory infection, unspecified (principal); M25.40 Effusion, unspecified joint; R23.3 Spontaneous ecchymoses; Z68.31 Body mass index [BMI] 31.0-31.9, adult; K52.9 Noninfective gastroenteritis and colitis, unspecified; R21 Rash and other nonspecific skin eruption; F10.10 Alcohol abuse, uncomplicated

== ENCOUNTER 2024-05-27 05:00 | Emergency (ER) | payer OTHER ==
[~2024-05-27] VITALS: Ht 165.1 cm; Wt 90.0 kg
[~2024-05-27 05:00] MED LIST changes: +EMTRICITABINE/TENOFOVIR 200MG/300MG TABLET PO SCH; +RALTEGRAVIR 400 MG TAB (ISENTRESS) PO SCH
[2024-05-27 07:48] LABS: BASO # 0.1 10^3/uL (0.0-0.2); BASO % 0.6 % (0.0-1.0); EOS # 0.1 10^3/uL (0.0-0.5); EOS % 1.4 % (0.0-3.0); HEMATOCRIT 41.7 % (36.0-47.0); HEMOGLOBIN 14.8 g/dl (12.0-15.5); LYMPH # 2.8 10^3/uL (1.5-5.0); LYMPH % 31.1 % (24.0-44.0); MEAN CORPUSCULAR HEMOGLOBIN 31.6 pg (27.0-33.0); MEAN CORPUSCULAR HGB CONC 35.5 g/dl (32.0-36.5); MEAN CORPUSCULAR VOLUME 89.1 fl (80.0-96.0); MONO # 0.6 10^3/uL (0.0-0.8); MONO % 6.4 % (2.0-8.0); NEUTROPHILS # 5.4 10^3/uL (1.5-8.5); NEUTROPHILS % 59.2 % (36.0-66.0); PLATELET COUNT, AUTOMATED 234 10^3/uL (150-450); RED BLOOD COUNT 4.68 10^6/uL (4.00-5.40); WHITE BLOOD COUNT 9.1 10^3/uL (4.0-10.0)
[2024-05-27] MEDS ORDERED: EXPOSURE KIT-ADULT 7 DAY SUPPLY PO ONE (07:50)
[2024-05-27] MEDS ORDERED: EMTR1TAB16 PO (07:51)
[2024-05-27] MEDS ORDERED: RALT40TA PO (07:51)
[2024-05-27] MEDS ORDERED: DOXY-442 PO (07:51)
[2024-05-27] MEDS ORDERED: ONDA-282 PO (07:55)
[2024-05-27 08:17] LABS: ALBUMIN 4.1 G/DL (3.2-5.2); ALKALINE PHOSPHATASE 91 U/L (35-104); ALT/SGPT 41 U/L (7.0-40); AST/SGOT 24 U/L (<34); BILIRUBIN,TOTAL 1.2 MG/DL (0.3-1.2); BLOOD UREA NITROGEN 11 MG/DL (9-23); CALCIUM LEVEL 9.8 MG/DL (8.5-10.1); CARBON DIOXIDE LEVEL 26 MMOL/L (20-31); CHLORIDE LEVEL 103 MMOL/L (98-107); CREATININE FOR GFR 0.82 MG/DL (0.55-1.30); GLOMERULAR FILTRATION RATE > 60.0 (>60); GLUCOSE, FASTING 97 MG/DL (60-100); POTASSIUM SERUM 3.7 MMOL/L (3.5-5.1); SODIUM LEVEL 139 MMOL/L (136-145); TOTAL PROTEIN 7.5 G/DL (5.7-8.2)
[2024-05-27 08:22] LABS: HCG, SERUM QUALITATIVE NEGATIVE (NEGATIVE)
[2024-05-27 08:24] LABS: HEPATITIS B SURFACE ANTIBODY NEGATIVE (POSITIVE)
[2024-05-27 08:35] LABS: HEPATITIS B SURFACE ANTIGEN NEGATIVE (NEGATIVE)
[2024-05-27 08:48] LABS: HIV 1&2 SCREEN NEGATIVE (NEGATIVE)
[2024-05-27 08:56] LABS: HEPATITIS C VIRUS ABY INDEX 0.05 INDEX (<0.8)
[2024-05-27 09:13] LABS: Trichomonas vaginalis (AMP) NOT DETECTED (NEGATIVE)
[2024-05-27 09:36] LABS: GC DNA AMPLIFICATION NEGATIVE (NEGATIVE)
[2024-05-27] MEDS: EMTRICITABINE/TENOFOVIR 200MG/300MG TABLET PO ONE (10:40)
[2024-05-27] MEDS: ULIPRISTAL ACETATE 30MG TAB (ELLA) PO ONE (10:42)
[2024-05-27] MEDS: cefTRIAXone 500MG VIAL IM ONE (10:43)
[2024-05-27] MEDS: DOXYCYCLINE HYCLATE 100MG TABLET PO ONE (10:43)
[2024-05-27] MEDS: AZITHROMYCIN 250MG TABLET PO ONE (10:43)
[2024-05-27] MEDS: metroNIDAZOLE (FLAGYL) 500MG TABLET PO ONE (10:44)
[2024-05-27] MEDS: LIDOCAINE 1% SDV 5ML VIAL DILUENT ONE (10:44)
[2024-05-27] MEDS: RALTEGRAVIR 400 MG TAB (ISENTRESS) PO ONE (10:45)
[2024-05-27] MEDS: ONDANSETRON 4MG 2ML VIAL IM ONE (11:08)
[2024-05-27 11:35] VITALS: BP 142/86; TEMP 97.8; O2SAT 99
== END 2024-05-27 11:41 | disposition home or self-care (01) ==
LOC: M ED 05:00
DX: T76.21XA Adult sexual abuse, suspected, initial encounter (principal); F17.200 Nicotine dependence, unspecified, uncomplicated; R51.9 Headache, unspecified; Z88.0 Allergy status to penicillin; Z88.1 Allergy status to other antibiotic agents; Z79.2 Long term (current) use of antibiotics; Z79.83 Long term (current) use of bisphosphonates; Z79.899 Other long term (current) drug therapy
CPT/HCPCS: 80053; 84703; 85025; 86706; 86780; 86803; 87340; 87389; 87661; 87810; 87850; 96372; 99284; J2405

== ENCOUNTER → 2024-11-11 | Outpatient (REF) | payer OTHER ==
[~2024-11-11] MED LIST changes: +DOXY-442 PO; +EMTR1TAB16 PO; -EMTRICITABINE/TENOFOVIR 200MG/300MG TABLET PO SCH; -IBUP-1022 PO; +IBUP600T42 PO; +ONDA-282 PO; +RALT40TA PO; -RALTEGRAVIR 400 MG TAB (ISENTRESS) PO SCH
== END ==
LOC: M LAB REF 17:16
PROVIDERS: ATTEND Physician Assistant Medical
DX: L98.8 Other specified disorders of the skin and subcutaneous tissue (principal)

== ENCOUNTER 2024-11-20 07:02 | Emergency (ER) | payer OTHER ==
[~2024-11-20] VITALS: Ht 165.1 cm; Wt 94.6 kg
[2024-11-20 10:14] LABS: KETONE, URINE AUTO RFX NEGATIVE (NEGATIVE); LEUKOCYTE ESTERASE UR AUTO RFX TRACE (NEGATIVE); NITRITE, URINE AUTO RFX NEGATIVE (NEGATIVE); RBC, URINE AUTO RFX 1 /HPF (0-3); SQUAM EPITHELIAL CELL UR AURFX 21 /HPF (0-6); WBC, URINE AUTO RFX 6 /HPF (0-3)
[2024-11-20 10:16] LABS: BASO # 0.1 10^3/uL (0.0-0.2); BASO % 1.0 % (0.0-1.0); EOS # 0.2 10^3/uL (0.0-0.5); EOS % 2.1 % (0.0-3.0); LYMPH # 3.5 10^3/uL (1.5-5.0); LYMPH % 44.0 % (24.0-44.0); MONO # 0.5 10^3/uL (0.0-0.8); MONO % 5.8 % (2.0-8.0); NEUTROPHILS # 3.4 10^3/uL (1.5-8.5); NEUTROPHILS % 43.4 % (36.0-66.0); PLATELET COUNT, AUTOMATED 235 10^3/uL (150-450)
[2024-11-20 10:39] LABS: HCG, SERUM QUALITATIVE NEGATIVE (NEGATIVE)
[2024-11-20 10:42] LABS: ALT/SGPT 41 U/L (7.0-40); AST/SGOT 30 U/L (<34); CALCIUM LEVEL 9.3 MG/DL (8.5-10.1); CARBON DIOXIDE LEVEL 26 MMOL/L (20-31); CHLORIDE LEVEL 103 MMOL/L (98-107); CREATININE FOR GFR 0.78 MG/DL (0.55-1.30); GLOMERULAR FILTRATION RATE > 90.0 (>60); POTASSIUM SERUM 4.1 MMOL/L (3.5-5.1); SODIUM LEVEL 137 MMOL/L (136-145)
[2024-11-20] MEDS ORDERED: ISOVUE-370 76% 100 ML VIAL As Ordered ONE (11:10)
[2024-11-20 11:36] VITALS: TEMP 98
[2024-11-20 12:10] VITALS: BP 117/71; O2SAT 97
== END 2024-11-20 12:17 | disposition home or self-care (01) ==
LOC: M ED 09:51
DX: R10.2 Pelvic and perineal pain (principal); N83.292 Other ovarian cyst, left side; F17.200 Nicotine dependence, unspecified, uncomplicated; F19.10 Other psychoactive substance abuse, uncomplicated; F10.10 Alcohol abuse, uncomplicated; F41.9 Anxiety disorder, unspecified; Z88.0 Allergy status to penicillin; Z88.1 Allergy status to other antibiotic agents; Z86.19 Personal history of other infectious and parasitic diseases; Z79.899 Other long term (current) drug therapy; Z79.83 Long term (current) use of bisphosphonates
CPT/HCPCS: 36415; 74177; 80048; 80076; 81001; 83690; 84703; 85025; 87086; 99284; Q9967